=== PATIENT | female | born 1960 | race Caucasian/White ===

== ENCOUNTER → 2024-02-12 10:25 | Outpatient (REF) | payer MEDICARE, MEDICAID, SELFPAY | LOC: HWWDC 10:25 | PROVIDERS: ATTENDING PHYSICIAN Internal Medicine | DX: Z12.31 Encounter for screening mammogram for malignant neoplasm of breast (principal) | CPT/HCPCS: 77063; 77067 ==

== ENCOUNTER 2024-02-25 10:15 | Emergency (ER) | payer MEDICARE, MEDICAID, SELFPAY ==
[2024-02-25 10:17] VITALS: BP 95/82
[2024-02-25] MEDS: MOTRIN 400 MG PO (10:33)
--- NOTE | 2024-02-25 11:48 | ED.GENMED ---
History of Present Illness
<Sushant Wallace PA-C - Last Filed: 02/25/24 12:31>
General
Chief Complaint: Musculo-Skeletal Complaint
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
Time Seen by Provider: 02/25/24 10:17
History of Present Illness
History of Present Illness:
63-year-old female with past medical history of Down syndrome presenting to the emergency department for evaluation after injuring her right foot last night when she was attempting to walk to the bathroom and excellently tripped. This morning noted
increased pain, swelling, ecchymosis and difficulty ambulating. Staff noted ecchymosis to the distal metatarsals mainly concentrated around the first second and third metatarsals prompting them to have the patient come to the ER to be further
evaluated. No other injuries were sustained.
Past History
<Sushant Wallace PA-C - Last Filed: 02/25/24 12:31>
Past History
ED Past Medical History: Other (down syndrome)
Social History
Tobacco: Non-smoker
Alcohol: None
Drug: None
Personal: Single
Living: assisted living
Employment: Employed
Review of Systems
<Sushant Wallace PA-C - Last Filed: 02/25/24 12:31>
Review of Systems
All Other Systems: ROS reviewed and negative except as documented in HPI and ROS
Phy Exam
<Sushant Wallace PA-C - Last Filed: 02/25/24 12:31>
Physical Exam
Physical Exam:
GENERAL: Alert , in no apparent distress
EYE: conjunctiva clear
Head: Normocephalic atraumatic
NECK: Supple,
ENT: mmm.
LUNGS: no acute respiratory distress
NEUROLOGICAL: Alert and oriented
SKIN: Warm and dry, skin intact.
MUSCULOSKELETAL: Right foot: Mild soft tissue swelling with ecchymosis around the first second and third metatarsal. Mild tenderness over this area. Easily palpable pedal and tibial pulse. No tenderness to the proximal leg. Calcaneal tendon
without laxity. Extremities otherwise warm and well-perfused.
PSYCH: Normal and appropriate interaction.
Scores
<Sushant Wallace PA-C - Last Filed: 02/25/24 12:31>
Heart Failure Risk
Heart Failure Risk Score: Not Applicable
Heart Score for Chest Pain Patients
STEMI patient?: Not applicable
Withdrawal Assessment of Alcohol
Withdrawal Assessment Completed?: Not applicable
Course
<Sushant Wallace PA-C - Last Filed: 02/25/24 12:31>
Orders/Labs/Results
Orders:
Orders
02/25/24 10:29
Ibuprofen [Motrin] 400 mg PO NOW STA
CR Ankle - Right Min 3 Views * Urgent
Comment:
Reason For Exam: fall, pain
CR Foot - Right Min 3 Views Urgent
Comment:
Reason For Exam: fall, pain/ecchymosis great toe and 2nd digit
CR Leg Tibia/fibula Right 2 Vw Urgent
Comment:
Reason For Exam: fall, pain
Vital Signs
Initial and Last Documented VS:
Initial Vital Signs
Temp Pulse Resp BP Pulse Ox
98.9 F 96 18 95/82 95
02/25/24 10:17 02/25/24 10:17 02/25/24 10:17 02/25/24 10:17 02/25/24 10:17
Last Documented Vital Signs
Temp Pulse Resp BP Pulse Ox
98.5 F 79 18 123/63 98
02/25/24 11:55 02/25/24 11:55 02/25/24 11:55 02/25/24 11:55 02/25/24 11:55
<Rafa Cha DO - Last Filed: 02/25/24 14:04>
Orders/Labs/Results
Orders:
Orders
02/25/24 10:29
Ibuprofen [Motrin] 400 mg PO NOW STA
CR Ankle - Right Min 3 Views * Urgent
Comment:
Reason For Exam: fall, pain
CR Foot - Right Min 3 Views Urgent
Comment:
Reason For Exam: fall, pain/ecchymosis great toe and 2nd digit
CR Leg Tibia/fibula Right 2 Vw Urgent
Comment:
Reason For Exam: fall, pain
Vital Signs
Initial and Last Documented VS:
Initial Vital Signs
Temp Pulse Resp BP Pulse Ox
98.9 F 96 18 95/82 95
02/25/24 10:17 02/25/24 10:17 02/25/24 10:17 02/25/24 10:17 02/25/24 10:17
Last Documented Vital Signs
Temp Pulse Resp BP Pulse Ox
98.5 F 79 18 123/63 98
02/25/24 11:55 02/25/24 11:55 02/25/24 11:55 02/25/24 11:55 02/25/24 11:55
<Sushant Wallace PA-C - Last Filed: 02/25/24 12:31>
MDM/Problems Addressed
Differential Diagnosis Includes:
Contusion, sprain, fracture
MDM/Problems Addressed:
63 year old female presenting to ED after accidental right foot injury. Mild soft tissue swelling and ecchymosis to distal metatarsals. XR ordered to further assess
<Sushant Wallace PA-C - Last Filed: 02/25/24 12:31>
*Radiology
Radiology exam reviewed: preliminary read by ED provider (degenerative changes, no fractures)
*Pulse Oximetry
Patient hypoxic: no
*Critical Care Note
Total Time (30-74mins, 75-104mins- exclusive of procedures): Not Applicable
<Sushant Wallace PA-C - Last Filed: 02/25/24 12:31>
Patient Management
Escalation/DeEscalation of care consider admission/obs:
Patients imaging unremarkable for acute pathologies. NSAIDs/tylenol PRN for pain. Stable for discharge home
ED Attending Note
<Sushant Wallace PA-C - Last Filed: 02/25/24 12:31>
-
Portions of this chart may have been created with voice recognition software.� Occasional wrong word or��sound alike� substitutions may have occurred due to the inherent limitations of voice recognition software.
<Rafa Cha DO - Last Filed: 02/25/24 14:04>
ED Attending Note
Patient seen and examined by attending physician: Yes
ED Attending Note:
I reviewed and agree with history plan by Mauro Wallace. My exam reveals 63-year-old female in no acute distress. Mild ecchymosis at right medial metatarsals. No fractures seen. Stable for discharge.
Discharge Plan
Departure
Patient Disposition: Home (Routine Discharge)
Date of Disposition: 02/25/24
Time of Disposition: 11:48
Patient with high blood pressure during this ER visit?: No
Discharge Problem:
Right foot sprain, Contusion of foot, right
Instructions: Sprain (DC)
Prescriptions:
New
ibuprofen 400 mg tablet
400 mg PO TID PRN (Reason: Pain) Qty: 15 0RF
No Action
acetaminophen 325 MG tablet
650 mg PO Q4HPRN PRN (Reason: fever, headache, pain)
loperamide 2 MG capsule
2 mg PO Q4HPRN PRN (Reason: diarrhea)
ibuprofen 400 MG tablet
400 mg PO Q4HPRN PRN (Reason: pain)
azelastine [Astelin] 137 MCG/0.137 ML aerosol,spray
137 mcg NS DAILY
Patient Comments:
both nares
ipratropium bromide 42 MCG/SPRAY spray,non-aerosol
2 spray intranasal BID
ibandronate [Boniva] 150 MG tablet
150 mg PO .MONTHLY
Patient Comments:
on the
levocetirizine [Xyzal] 5 MG tablet
5 mg PO DAILY
pediatric multivitamin no.17 [Animal Shapes] 1 EACH tablet,chewable
1 ea PO DAILY
atorvastatin 20 MG tablet
20 mg PO HS
pymjb-z-knpjfmqaufohv [Beano] 1 TAB tablet
1 tab PO DAILY@1700
carbamide peroxide [Ear Wax Drops] 15 ML drops
2 drp otic (ear) WEEKLY
Patient Comments:
on Friday
omeprazole 20 MG capsule,delayed release(DR/EC)
20 mg PO DAILY
ketoconazole 1 APPLIC cream
1 applic topical BID
Patient Comments:
apply to both feet
cholecalciferol (vitamin D3) [Vitamin D3] 1,000 UNIT capsule
1,000 unit PO HS
sodium chloride [Saline Nasal Cascade] 30 ML aerosol,spray
1 spray intranasal BID
Patient Comments:
BL nares
olopatadine [Pataday] 2.5 ML drops
1 drp BOTH EYES DAILY
calcium carbonate-vitamin D3 [Oystercal-D] 1 EACH tablet
1 tab PO BID
ylch-rgstgudqt-tjjsjagt-aldiox [Zeasorb] 71 GM powder
1 applic topical BIDPRN PRN (Reason: rash)
aspirin,buffd-calcium carb-mag [Tri-Buffered Aspirin] 325 MG tablet
325 mg PO DAILY Qty: 0 0RF
oxycodone 5 MG tablet
5 mg PO Q4HPRN PRN (Reason: moderate pain) Qty: 18 0RF
Referrals:
Charlie Man DO [Family Provider] -
Interventions
Interventions:
*Risk Screen - Suicide Last Done: 02/25/24 11:56
*Neglect/Abuse Screening Last Done: 02/25/24 11:56
ED- Fall Risk Assessment Last Done: 02/25/24 12:37
ED-Musculoskeletal Assessment Last Done: 02/25/24 11:55
Discharge Date and Time
Print Language: SWAZI
[2024-02-25 11:55] VITALS: BP 123/63
== END 2024-02-25 14:18 | disposition home or self-care (01) ==
LOC: EMR 10:15
PROVIDERS: EMERGENCY PHYSICIAN Emergency Medicine; FAMILY PHYSICIAN Internal Medicine
DX: S93.601A Unspecified sprain of right foot, initial encounter (principal); S90.31XA Contusion of right foot, initial encounter; X58.XXXA Exposure to other specified factors, initial encounter; M25.571 Pain in right ankle and joints of right foot; Q90.9 Down syndrome, unspecified
CPT/HCPCS: 99283; 73590; 73610; 73630

== ENCOUNTER 2025-05-29 15:01 | Inpatient (IN) | payer MEDICARE, MEDICAID, SELFPAY ==
[2025-05-29 10:33] VITALS: BP 95/63
[2025-05-29 10:56] LABS: Hematocrit 38.7 % (37.0-47.0); Hemoglobin 12.9 g/dL (12.0-16.0); Mean Corp Hgb Conc. 33.3 g/dL (33.0-37.0); Mean Corpuscular Volume 93.0 fL (81.0-99.0); Nucleated Red Blood Cells % 0 %; Platelet Count 265 10^3/uL (130-400); Red Cell Dist. Width 15.3 % (11.5-14.5)
--- NOTE | 2025-05-29 11:11 | ED.GENMED ---
History of Present Illness
<SAMIRA Denson - Last Filed: 05/29/25 15:00>
General
Chief Complaint: Rectal Bleeding
Source: care professional
Exam Limitations: none
Time Seen by Provider: 05/29/25 10:32
Nursing documentation reviewed up to this point in time: agreed with
History of Present Illness
History of Present Illness:
Patient is a 64-year-old female with past medical history of Down syndrome from residential facility brought by caregiver. Caregiver reports for the past several days patient is more confused and weaker than normal. Typically she will walk and
now she can barely stand to pivot. She does have a baseline history of dementia. They also noticed that she is urinating more. They did have outpatient blood work done however that has not been resulted. Today caregiver noted some blood in
patient's stool. She reports stool was not black but dark in color and had a clot of blood which was bright red blood near the stool in the toilet and had some blood stranding in the stool as well. Patient is not able to give history.
Past History
<SAMIRA Denson - Last Filed: 05/29/25 15:00>
Past History
ED Past Medical History: Other (down syndrome)
Social History
Tobacco: Non-smoker
Alcohol: None
Drug: None
Personal: Single
Living: assisted living
Employment: Employed
Phy Exam
<SAMIRA Denson - Last Filed: 05/29/25 15:00>
General Physical Exam
General Presentation: no apparent distress
General age: appears younger than age
General Skin: warm and dry
General Habitus: normal
General Hydration: dry mucous membranes
Cardiovascular Exam
Cardiovascular Exam: regular rate/rhythm, no murmur and normal peripheral pulses
Pulmonary Exam
Pulmonary Exam: lungs clear and no respiratory distress
Gastrointestinal Exam
Gastrointestinal Exam: non tender, soft and other (brown stool heme positive )
Neurological Exam
Neurological Exam: alert
Musculoskeletal Exam
Musculoskeletal Exam: full ROM
Skin Exam
Skin Exam: normal color and warm/dry
Psychiatric Exam
Psychiatric Exam: normal mood/affect
Course
<SAMIRA Denson - Last Filed: 05/29/25 15:00>
Orders/Labs/Results
Orders:
Orders
05/29/25 10:47
Type And Crossmatch [Type+Screen] Urgent
Complete Blood Count/With Diff Urgent
Comprehensive Metabolic Panel Urgent
05/29/25 11:14
Straight cath- Treatment ONCE
05/29/25 11:30
0.9% Sodium Chloride 1000 ml [Nss] 1,000 ml IV BOLUS
05/29/25 11:48
UA Reflex to Culture [Urinalysis Reflex To Culture] Urgent
Date Specimen was Collected: 05/29/25
Time Specimen was Collected: 11:48
Urine Microscopic Reflex Cult Urgent
Urine Culture Urgent
ISADORA Source: U
Specimen Description:
Date Specimen was Collected: 05/29/25
Time Specimen was Collected: 11:48
05/29/25 13:40
CefTRIAXone [Rocephin] 1,000 mg IV NOW STA
05/29/25 14:27
Admit/Transfer Patient As Directed
Co-Sign Provider:
Level of Care: Inpatient admission
Assign to:: Medical/Surgical
Physician / Group: ioana
Diagnosis: metabolic encephelopathy uti
Reason for Hospitalization: metabolic encephelopathy uti
Expected length of stay greater than two midnights?: Yes
ELOS- Estimated Length of Stay in days: 2
I certify the patient meets the requirements for IP care: Yes
PRN Pain Medication Management As Directed
May give lesser potent ordered pain med per pt: Yes
preference::
Protocol:: Medication orders for pain may be administered in a
manner that supports deferring to patient preference
when the pt is:
- Requesting an ordered lesser potent pain medication.
Least to most potent pain medications are defined
as: acetaminophen < NSAID < tramadol < opioids
(morphine, oxycodone, hydromorphone).
- Requesting a lesser dose of the same medication IF
ORDERED.
- Requesting a less intrusive route of administration
if both routes are prescribed by the provider (PO <
IV).
05/29/25 14:28
Code Status As Directed
Resuscitation Status: Full Code
Abnormal Lab Results
05/29/25 05/29/25
10:47 11:48
RBC 4.16 L 10^6/uL
(4.20-5.40)
RDW 15.3 H %
(11.5-14.5)
Absolute Neuts (auto) 8.0 H 10^3/uL
(1.4-6.5)
Absolute Lymphs (auto) 1.1 L 10^3/uL
(1.2-3.4)
Neutrophils % 81.0 H %
(42.2-75.2)
Lymphocytes % 10.6 L %
(20.5-51.1)
Chloride 108 H mmol/L
(98-107)
BUN 28 H mg/dl
(7-17)
Creatinine 1.3 H mg/dL
(0.6-1.0)
Glucose 128 H mg/dl
(70-99)
Urine Ketones 1+ A
(Negative)
Ur Occult Blood Reflex 1+ A
(Negative)
Urine Nitrite (Reflex) Positive A
(Negative)
Leukocyte Esterase Rfl 2+ A
(Negative)
Urine WBC (Reflex) 16-20 A /HPF
(0-5)
Urine Bacteria (Reflex) Many A
(Negative)
Urine Albumin (Reflex) 2+ A
(Neg - Trace)
05/29/25 10:47
05/29/25 10:47
Vital Signs
Initial and Last Documented VS:
Initial Vital Signs
Temp Pulse Resp BP Pulse Ox
97.3 F 70 20 95/63 98
05/29/25 10:33 05/29/25 10:33 05/29/25 10:33 05/29/25 10:33 05/29/25 10:33
Last Documented Vital Signs
Temp Pulse Resp BP Pulse Ox
97.3 F 70 20 /63 98
05/29/25 10:33 05/29/25 14:15 05/29/25 14:15 05/29/25 10:33 05/29/25 11:14
Supervisor Stitching Department consulted with Physician
Supervisor Stitching Department consulted with physician?: Yes
Name of Physician Consulted: Billy
<Abdiel Cervantes MD - Last Filed: 05/29/25 14:42>
Orders/Labs/Results
Orders:
Orders
05/29/25 10:47
Type And Crossmatch [Type+Screen] Urgent
Complete Blood Count/With Diff Urgent
Comprehensive Metabolic Panel Urgent
05/29/25 11:14
Straight cath- Treatment ONCE
05/29/25 11:30
0.9% Sodium Chloride 1000 ml [Nss] 1,000 ml IV BOLUS
05/29/25 11:48
UA Reflex to Culture [Urinalysis Reflex To Culture] Urgent
Date Specimen was Collected: 05/29/25
Time Specimen was Collected: 11:48
Urine Microscopic Reflex Cult Urgent
Urine Culture Urgent
ISADORA Source: U
Specimen Description:
Date Specimen was Collected: 05/29/25
Time Specimen was Collected: 11:48
05/29/25 13:40
CefTRIAXone [Rocephin] 1,000 mg IV NOW STA
05/29/25 14:27
Admit/Transfer Patient As Directed
Co-Sign Provider:
Level of Care: Inpatient admission
Assign to:: Medical/Surgical
Physician / Group: ioana
Diagnosis: metabolic encephelopathy uti
Reason for Hospitalization: metabolic encephelopathy uti
Expected length of stay greater than two midnights?: Yes
ELOS- Estimated Length of Stay in days: 2
I certify the patient meets the requirements for IP care: Yes
PRN Pain Medication Management As Directed
May give lesser potent ordered pain med per pt: Yes
preference::
Protocol:: Medication orders for pain may be administered in a
manner that supports deferring to patient preference
when the pt is:
- Requesting an ordered lesser potent pain medication.
Least to most potent pain medications are defined
as: acetaminophen < NSAID < tramadol < opioids
(morphine, oxycodone, hydromorphone).
- Requesting a lesser dose of the same medication IF
ORDERED.
- Requesting a less intrusive route of administration
if both routes are prescribed by the provider (PO <
IV).
05/29/25 14:28
Code Status As Directed
Resuscitation Status: Full Code
Abnormal Lab Results
05/29/25 05/29/25
10:47 11:48
RBC 4.16 L 10^6/uL
(4.20-5.40)
RDW 15.3 H %
(11.5-14.5)
Absolute Neuts (auto) 8.0 H 10^3/uL
(1.4-6.5)
Absolute Lymphs (auto) 1.1 L 10^3/uL
(1.2-3.4)
Neutrophils % 81.0 H %
(42.2-75.2)
Lymphocytes % 10.6 L %
(20.5-51.1)
Chloride 108 H mmol/L
(98-107)
BUN 28 H mg/dl
(7-17)
Creatinine 1.3 H mg/dL
(0.6-1.0)
Glucose 128 H mg/dl
(70-99)
Urine Ketones 1+ A
(Negative)
Ur Occult Blood Reflex 1+ A
(Negative)
Urine Nitrite (Reflex) Positive A
(Negative)
Leukocyte Esterase Rfl 2+ A
(Negative)
Urine WBC (Reflex) 16-20 A /HPF
(0-5)
Urine Bacteria (Reflex) Many A
(Negative)
Urine Albumin (Reflex) 2+ A
(Neg - Trace)
05/29/25 10:47
05/29/25 10:47
Vital Signs
Initial and Last Documented VS:
Initial Vital Signs
Temp Pulse Resp BP Pulse Ox
97.3 F 70 20 63 98
05/29/25 10:33 05/29/25 10:33 05/29/25 10:33 05/29/25 10:33 05/29/25 10:33
Last Documented Vital Signs
Temp Pulse Resp BP Pulse Ox
97.3 F 70 20 63 98
05/29/25 10:33 05/29/25 14:15 05/29/25 14:15 05/29/25 10:33 05/29/25 11:14
<SAMIRA Denson - Last Filed: 05/29/25 15:00>
MDM/Problems Addressed
Differential Diagnosis Includes:
Not limited to UTI dehydration GI bleed, anemia
MDM/Problems Addressed:
As documented patient is a 64-year-old female from home with personal caregivers. Patient has a history of Down syndrome presented for weakness increased confusion frequent urination. In addition caregiver noted some blood in patient's stool stool
seemed a little darker prior to arrival. Patient's stool is brown heme positive here in the ER hemoglobin stable 12.9 she is not on blood thinners. She does however have UTI and is dehydrated. She was given fluids with weakness dehydration
confusion will require admission IV antibiotics given. Case discussed ED physician
<SAMIRA Denson - Last Filed: 05/29/25 15:00>
*Pulse Oximetry
SaO2: 98
Oxygen Mode of Delivery: Room air
Patient hypoxic: no
*Critical Care Note
Total Time (30-74mins, 75-104mins- exclusive of procedures): Not Applicable
ED Attending Note
<SAMIRA Denson - Last Filed: 05/29/25 15:00>
-
Portions of this chart may have been created with voice recognition software.� Occasional wrong word or��sound alike� substitutions may have occurred due to the inherent limitations of voice recognition software.
<Abdiel Cervantes MD - Last Filed: 05/29/25 14:42>
ED Attending Note
Patient seen and examined by attending physician: Yes
I performed the substantive portion of visit, reviewed & personally made and approve the management plan that is documented in note by myself or NORMAN.: Yes
ED Attending Note:
64-year-old female. Down syndrome. Presents with weakness difficulty ambulating and urinary symptoms. Also small amount of blood in the stool. Patient has no complaints. Brought in by caregiver. On exam nontoxic no distress. Mild hypotension.
Sequela of Down syndrome. Warm and dry. Perfusing well. Lungs are clear and equal. Regular rate and rhythm. Abdomen nontender. Nonfocal. Positive urinalysis given patient's degree of weakness and ADL issues along with UTI will be admitted
for further care
Discharge Plan
Departure
Patient Disposition: Admit
Date of Disposition: 05/29/25
Time of Disposition: 13:58
Admit to: Med/Surg
Admit to doctor: hospitalist
Presentation/result/management discussed w/ accepting MD/DO: Hospitalist
Patient with high blood pressure during this ER visit?: No
Condition: Fair
Covid-19: Not Applicable
Discharge Problem:
UTI (urinary tract infection), Weakness, Acute dehydration
Prescriptions:
No Action
acetaminophen 325 MG tablet
650 mg PO Q4HPRN PRN (Reason: fever, headache, pain)
atorvastatin 20 MG tablet
20 mg PO HS
Ear Wax Drops 15 ML drops
2 drp otic (ear) WE
omeprazole 20 MG capsule,delayed release(DR/EC)
20 mg PO DAILY
cholecalciferol (vitamin D3) [Vitamin D3] 1,000 UNIT capsule
1,000 unit PO HS
Theragen Tablet
1 tab PO DAILY
azelastine 137 mcg (0.1 %) spray,non-aerosol
1 spray INTRANASAL DAILY
Refresh Classic (PF) 1.4-0.6 % dropperette
1 drp BOTH EYES QID
Saline Nasal 0.65 % aerosol,spray
2 spray INTRANASAL BID
calcium carbonate-vitamin D3 [Oysco 500/D] 500 mg-5 mcg (200 unit) tablet
1 tab PO DAILY
Visbiome 112.5 billion cell Capsule
1 cap PO BID
menthol-zinc oxide [CalaSoothe] 0.44-20.6 % ointment
1 applic TOPICAL BID
Rx Instructions:
to ju area
Beano 400 unit Tablet
400 unit PO QPM
Referrals:
Radha Herring CRNP [Family Provider, General]
Interventions
Interventions:
*Risk Screen - Suicide Last Done: 05/29/25 10:33
*General Assessment Last Done: 05/29/25 10:33
*Neglect/Abuse Screening Last Done: 05/29/25 10:33
XT-Fiqmuo-Qnfrsekicx Assessment Last Done: 05/29/25 11:52
ED- Cardiac Assessment Last Done: 05/29/25 11:52
ED- Pulmonary Assessment Last Done: 05/29/25 11:52
Discharge Date and Time
Print Language: MACEDONIAN
[2025-05-29 11:19] LABS: ALT (SGPT) 23 U/L (0-35); AST (SGOT) 26 U/L (14-36); Albumin 3.7 g/dl (3.5-5.0); Alkaline Phosphatase 92 U/L (38-126); Blood Urea Nitrogen 28 mg/dl (7-17); Calcium 8.7 mg/dl (8.4-10.2); Carbon Dioxide 24 mmol/L (22-30); Chloride 108 mmol/L (98-107); Glucose 128 mg/dl (70-99); Potassium 3.8 mmol/L (3.5-5.1); Sodium 141 mmol/L (135-145); Total Protein 6.8 g/dl (6.3-8.2); eGFR 45.92
[2025-05-29] MEDS: NSS 1000 IV (11:47)
[2025-05-29 12:10] LABS: Urine Character Slightly Cloudy (Clear)
[2025-05-29 12:37] LABS: Urine Red Blood Cell 0-2 /HPF (0-2)
[2025-05-29 12:38] LABS: Urine White Cell 16-20 /HPF (0-5)
[2025-05-29] MEDS: ROCEPHIN 1000 MG IV (14:12)
--- NOTE | 2025-05-29 14:30 | HPS.HSE ---
Family Physician
-
Family Physician: SAMIRA Pérez
Chief Complaint
-
blood in stool urinary frequency
History of Present Illness
64-year-old female past medical history of Down syndrome, dementia, mild mitral regurgitation, right hearing loss, osteopenia, allergic rhinitis, hyperlipidemia, presenting from residential facility by caregiver with more confusion over the past
several days. She was noticed to have urinated more frequently recently. Today caregiver noted some blood in the patient's stool. Stools were not black but dark in color and had a clot of blood which was dark red near the stool in the toilet and
had some blood draining in the stool as well. No prior known history of GI bleeding. She complains of abdominal pain in the middle of her belly. She did have some loose stools yesterday.
Patient takes ibuprofen as needed no recent use of ibuprofen.
Medical History
Past Medical History
Past Medical History: Reports Other (Down syndrome, dementia, mild mitral regurgitation, right hearing loss, osteopenia, allergic rhinitis, hyperlipidemia,)
Past Surgical History: Reports None
Social History
Tobacco: Non-smoker
Alcohol: None
Drug: None
Family History
Family History: Not pertinent
Allergies / Home Medications
Allergies reflects when Allergies were last updated in [facility].
Home Medications with original date entered in [facility]
Allergy/Medication List:
Allergies
Allergy/AdvReac Type Severity Reaction Status Date / Time
levofloxacin (From Levaquin) Allergy Rash Verified 05/29/25 10:35
Home Medications
acetaminophen 325 mg tablet 650 mg PO Q4HPRN PRN fever, headache, pain 06/26/12
azelastine 137 mcg (0.1 %) nasal spray (Astelin) 137 mcg NS DAILY 06/26/12
ibandronate 150 mg tablet (Boniva) 150 mg PO .MONTHLY 06/26/12
ibuprofen 400 mg tablet 400 mg PO Q4HPRN PRN pain 06/26/12
ipratropium bromide 42 mcg (0.06 %) nasal spray 2 spray intranasal BID 06/26/12
levocetirizine 5 mg tablet (Xyzal) 5 mg PO DAILY 06/26/12
loperamide 2 mg capsule 2 mg PO Q4HPRN PRN diarrhea 06/26/12
pediatric multivitamin no.17 (Animal Shapes chewable tablet) 1 ea PO DAILY 06/26/12
ifhzi-g-ztqfhbxieeito (Beano tablet) 1 tab PO DAILY@1700 08/02/16
atorvastatin 20 mg tablet 20 mg PO HS 08/02/16
calcium 500 mg (as carbonate)-vitamin D3 10 mcg (400 unit) tablet (Oystercal-D) 1 tab PO BID 08/02/16
carbamide peroxide 6.5 % ear drops (Ear Wax Drops) 2 drp otic (ear) WEEKLY 08/02/16
cholecalciferol (vitamin D3) 25 mcg (1,000 unit) capsule (Vitamin D3) 1,000 unit PO HS 08/02/16
ketoconazole 2 % topical cream 1 applic topical BID 08/02/16
olopatadine 0.2 % eye drops (Pataday) 1 drp BOTH EYES DAILY 08/02/16
omeprazole 20 mg capsule,delayed release 20 mg PO DAILY 08/02/16
sodium chloride 0.65 % nasal spray aerosol (Saline Nasal [place]) 1 spray intranasal BID 08/02/16
sydb-aelgkcbrc-bieiuwilvtuxh-aldioxa topical powder (Zeasorb topical powder) 1 applic topical BIDPRN PRN rash 08/02/16
aspirin,buffered (calcium carbonate-magnesium) 325 mg tablet (Tri-Buffered Aspirin) 325 mg PO DAILY ##0 08/06/16
oxycodone 5 mg tablet 5 mg PO Q4HPRN PRN moderate pain ##18 08/06/16
ibuprofen 400 mg tablet 400 mg PO TID PRN Pain #15 tabs 02/25/24
Review of Systems
-
History Source: Patient
A 12 point ROS was completed and negative except as noted: Yes
Constitutional: Reports No Symptoms
EENT: Reports No Symptoms
Respiratory: Reports No Symptoms
Cardiac: Reports No Symptoms
Abdomen/GI: Reports See HPI
: Reports See HPI
Musculoskeletal: Reports No Symptoms
Skin: Reports No Symptoms
Neurological: Reports No Symptoms
Endocrine: Reports No Symptoms
Hematologic/Lymphatic: Reports No Symptoms
Psych: Reports No Symptoms
Physical Exam
Vital Signs
Vital Signs
Temp Pulse Resp BP Pulse Ox
97.3 F 70 20 95/63 98
05/29/25 10:33 05/29/25 14:15 05/29/25 14:15 05/29/25 10:33 05/29/25 11:14
Physical Exam
General: Well Developed, Well Nourished and No Apparent Distress
HEENT: NormoCephalic, Moist mucous membranes and Atraumatic
Respiratory: Clear
Cardiac: S1/S2 and Regular Rhythm; No Murmur or Rub
GI: Soft, Non Tender, Non Distended and Normal Bowel Sounds; No Organomegaly
Rectal: Deferred by Provider
Musculoskeletal: No Clubbing, No Cyanosis and No Edema
Skin: No Rash
Neuro: Nonfocal/grossly intact
Laboratory Results
-
05/29/25 10:47
05/29/25 10:47
Laboratory Results
Total Bilirubin 0.5 mg/dl (0.2-1.3) 05/29/25 10:47
AST 26 U/L (14-36) 05/29/25 10:47
ALT 23 U/L (0-35) 05/29/25 10:47
Alkaline Phosphatase 92 U/L (38-126) 05/29/25 10:47
Data Reviewed
-
Lab Data: Labs Reviewed by me
Old Records: Reviewed
Impression/Plan
-
IMPRESSION:
PLAN:
# Acute metabolic encephalopathy secondary to UTI
# History of prior UTI
- Urinalysis shows 16-20 WBC, +2 leukocyte esterase
- IV fluids
- Ceftriaxone
# Acute kidney injury prerenal
- Creatinine 1.3
- IV fluids
# Rectal bleeding episode unclear etiology could be diverticular versus angioectasia versus colitis
- Rectal exam showed brown stool, heme positive
-No active bleeding currently, no diarrhea noted so far
- Hemoglobin 12.9
-Consider CT scan if continued bleeding or diarrhea
- Consult GI if continued bleeding or hemoglobin drops
- Clear liquid diet
Down syndrome
Dementia
Mild mitral regurgitation
Right hearing loss
Osteopenia
Allergic rhinitis
Hyperlipidemia
- Continue statin
Full code
DVT prophylaxis�SCDs
Clear liquid diet
--- NOTE | 2025-05-29 15:37 | EDCM ---
CM reviewed chart. Pt has Downs syndrome, lives in [facility] alf.
Needs assistance with ADLs, personal care, independent in ambulation, no assistive devices.
Aparna Scott listed as emergency contact in house nurse at her facility.
PCP: Sapphire Herring
Pharmacy: [facility]
Anticipate discharge back to alf, CM will continue to follow for any discharge planning needs.
[2025-05-29 16:24] VITALS: BMI 34.6
[2025-05-29 16:29] VITALS: BP 120/66
--- NOTE | 2025-05-29 19:17 | PTCARENOTE ---
Pt received from ED and pulled over to bed. Caregiver @bedside stayed to answer admission questions. VSS. Pt incontinent and yelling out with turning and cleaning. pt denies pain. Pt requesting to be left alone. Tangled put on the TV- pt relaxed at
this time. Bed alarm is in place. POC ongoing.
[2025-05-29 23:47] VITALS: BP 117/65
[2025-05-30 05:50] LABS: Hematocrit 37.9 % (37.0-47.0); Hemoglobin 12.7 g/dL (12.0-16.0); Mean Corp Hgb Conc. 33.5 g/dL (33.0-37.0); Mean Corpuscular Volume 92.9 fL (81.0-99.0); Nucleated Red Blood Cells % 0 %; Platelet Count 271 10^3/uL (130-400); Red Cell Dist. Width 14.9 % (11.5-14.5)
[2025-05-30 06:58] LABS: ALT (SGPT) 22 U/L (0-35); AST (SGOT) 27 U/L (14-36); Albumin 3.5 g/dl (3.5-5.0); Alkaline Phosphatase 96 U/L (38-126); Blood Urea Nitrogen 19 mg/dl (7-17); Calcium 8.4 mg/dl (8.4-10.2); Carbon Dioxide 24 mmol/L (22-30); Chloride 110 mmol/L (98-107); Estimated Creatinine Clearance 57 ml/min; Glucose 93 mg/dl (70-99); Potassium 4.0 mmol/L (3.5-5.1); Sodium 141 mmol/L (135-145); Total Protein 6.6 g/dl (6.3-8.2); eGFR > 60.00
[2025-05-30 07:31] VITALS: BP 146/80
--- NOTE | 2025-05-30 08:47 | W.PN.HOSP.TC ---
Today's Communication/Plan
-
See plan
Assessment / Plan
Assessment / Plan
Physical Exam
General: Well Developed, Well Nourished and No Apparent Distress
HEENT: Normocephalic, Moist mucous membranes
Respiratory: Clear to Auscultation Bilaterally
Cardiac: S1/S2 and Regular Rhythm
GI: Soft, Non Tender, Non Distended and Normal Bowel Sounds
Musculoskeletal: No Cyanosis and No Edema
Skin: Warm. Dry.
Neuro: Nonfocal/grossly intact
Assessment/Plan
64-year-old female past medical history of Down syndrome, dementia, mild mitral regurgitation, right hearing loss, osteopenia, allergic rhinitis, hyperlipidemia, presenting from residential facility by caregiver with more confusion over the past
several days. She was noticed to have urinated more frequently recently. Today caregiver noted some blood in the patient's stool. Stools were not black but dark in color and had a clot of blood which was dark red near the stool in the toilet and
had some blood draining in the stool as well. No prior known history of GI bleeding. She complains of abdominal pain in the middle of her belly. She did have some loose stools yesterday.
Patient takes ibuprofen as needed no recent use of ibuprofen.
# Acute metabolic encephalopathy secondary to UTI
# History of prior UTI
- Urinalysis showed 16-20 WBC, +2 leukocyte esterase
- Ceftriaxone
# Acute kidney injury prerenal - RESOLVED
- Creatinine 1.3
- IV fluids were given
# Rectal bleeding episode unclear etiology could be diverticular versus angioectasia versus colitis
- Rectal exam showed brown stool, heme positive
-No active bleeding currently, no diarrhea noted so far
- Hemoglobin 12.9
-Consider CT scan if continued bleeding or diarrhea
- Consult GI if continued bleeding or hemoglobin drops
- Clear liquid diet, will advance tomorrow
Down syndrome
Dementia
Mild mitral regurgitation
Right hearing loss
Osteopenia
Allergic rhinitis
Hyperlipidemia
- Continue statin
Full code
DVT prophylaxis�SCDs
Clear liquid diet
Anticipated Discharge: 24 - 48 hours
Subjective/Interval History
-
Date of Service: May 30, 2025
Patient was seen and examined. She denied any new symptoms or complaints.
Objective Data
-
Labs:
Laboratory Results
05/30/25
05:38
WBC 8.2
Hgb 12.7
Hct 37.9
Plt Count 271
Sodium 141
Potassium 4.0
Chloride 110 H
Carbon Dioxide 24
BUN 19 H
Creatinine 0.9
Glucose 93
Calcium 8.4
Total Bilirubin 0.5
AST 27
ALT 22
Alkaline Phosphatase 96
Vital Signs:
Vital Signs
Temp Pulse Resp BP Pulse Ox
97.5 F 69 16 146/80 93
05/30/25 07:31 05/30/25 07:31 05/30/25 07:31 05/30/25 07:31 05/30/25 07:31
I&O
05/29/25 05/30/25 05/31/25
06:59 06:59 06:59
Intake Total 600 / 600
Balance 600 / 600
[2025-05-30] MEDS: STERILE WATER FOR INJECTION 10 ML IV (14:20)
[2025-05-30] MEDS: ROCEPHIN 1000 MG IV (14:20)
[2025-05-30 15:26] VITALS: BP 141/78
[2025-05-30] MEDS: LIPITOR 20 MG PO (22:52)
[2025-05-30 23:27] VITALS: BP 133/70
[2025-05-31 06:37] LABS: Hematocrit 39.1 % (37.0-47.0); Hemoglobin 13.3 g/dL (12.0-16.0); Mean Corp Hgb Conc. 34.0 g/dL (33.0-37.0); Mean Corpuscular Volume 90.9 fL (81.0-99.0); Platelet Count 260 10^3/uL (130-400); Red Cell Dist. Width 14.6 % (11.5-14.5)
[2025-05-31 06:52] LABS: Blood Urea Nitrogen 12 mg/dl (7-17); Calcium 8.3 mg/dl (8.4-10.2); Carbon Dioxide 24 mmol/L (22-30); Chloride 108 mmol/L (98-107); Estimated Creatinine Clearance 57 ml/min; Glucose 87 mg/dl (70-99); Potassium 3.6 mmol/L (3.5-5.1); Sodium 140 mmol/L (135-145); eGFR > 60.00
[2025-05-31 07:23] VITALS: BP 139/63
--- NOTE | 2025-05-31 07:52 | W.PN.HOSP.TC ---
Today's Communication/Plan
-
Await final urine culture results tomorrow
Doing well
Assessment / Plan
Assessment / Plan
Physical Exam
General: Well Developed, Well Nourished and No Apparent Distress
HEENT: Normocephalic, Moist mucous membranes
Respiratory: Clear to Auscultation Bilaterally
Cardiac: S1/S2 and Regular Rhythm
GI: Soft, Non Tender, Non Distended and Normal Bowel Sounds
Musculoskeletal: No Cyanosis and No Edema
Skin: Warm. Dry.
Neuro: Nonfocal/grossly intact
Assessment/Plan
64-year-old female past medical history of Down syndrome, dementia, mild mitral regurgitation, right hearing loss, osteopenia, allergic rhinitis, hyperlipidemia, presenting from residential facility by caregiver with more confusion over the past
several days. She was noticed to have urinated more frequently recently. Today caregiver noted some blood in the patient's stool. Stools were not black but dark in color and had a clot of blood which was dark red near the stool in the toilet and
had some blood draining in the stool as well. No prior known history of GI bleeding. She complains of abdominal pain in the middle of her belly. She did have some loose stools yesterday.
Patient takes ibuprofen as needed no recent use of ibuprofen.
# Acute metabolic encephalopathy secondary to UTI
# History of prior UTI
- Urinalysis showed 16-20 WBC, +2 leukocyte esterase
- Ceftriaxone
- Urine culture growing E. coli, I spoke to microbiology lab and they said further results should be available tomorrow 06/01/25
# Acute kidney injury prerenal - RESOLVED
- Creatinine 1.3
- IV fluids were given
# Rectal bleeding episode unclear etiology could be diverticular versus angioectasia versus colitis
- Rectal exam showed brown stool, heme positive
- No active bleeding currently, no diarrhea noted so far
- Hemoglobin stable
- Consider CT scan only if continued bleeding or diarrhea
- Consult GI only if continued bleeding or hemoglobin drops
- Advance to regular diet
Down syndrome
Dementia
Mild mitral regurgitation
Right hearing loss
Osteopenia
Allergic rhinitis
Hyperlipidemia
- Continue statin
Full code
DVT prophylaxis�SCDs
Diet (as per Speech therapist Meg Lewis): Minced and moist solids + thin liquids
Anticipated Discharge: Within 24 hours
Subjective/Interval History
-
Date of Service: May 31, 2025
Patient was seen and examined. She reported doing fine, denied any new symptoms or complaints.
Objective Data
-
Labs:
Laboratory Results
05/31/25
05:54
WBC 6.9
Hgb 13.3
Hct 39.1
Plt Count 260
Sodium 140
Potassium 3.6
Chloride 108 H
Carbon Dioxide 24
BUN 12
Creatinine 0.9
Glucose 87
Calcium 8.3 L
Vital Signs:
Vital Signs
Temp Pulse Resp BP Pulse Ox
97.6 F 73 16 139/63 94
05/31/25 07:23 05/31/25 07:23 05/31/25 07:23 05/31/25 07:23 05/31/25 07:23
I&O
05/30/25 05/31/25 06/01/25
06:59 06:59 06:59
Intake Total 600 / 600 660 / 660
Balance 600 / 600 660 / 660
[2025-05-31] MEDS: PROTONIX 40 MG PO (08:36)
[2025-05-31] MEDS: OCEAN, SALINE MIST 50 SPRAYS NASAL ×2 (08:36→20:35)
[2025-05-31] MEDS: REFRESH EYE DROPS (PF) 1 DROPS BOTH EYES ×4 (08:36→20:35)
[2025-05-31] MEDS: THERAGRAN 1 TABLET PO (08:38)
--- NOTE | 2025-05-31 10:27 | PTOTSP ---
Speech Therapy Evaluation:
Pt with chronic risk factors of dysphagia including hx of down syndrome and dementia, acutely compounded by metabolic encephalopathy in the setting of UTI. Pt also has risk factors for development of aspiration complication including dependence for
oral care and ambulatory dysfunction. At bedside, pt with swallow function that is likely baseline. Suspect baseline oral phase inefficiency in the setting of edentulous state and absent mastication and reliance of repetitive lingual thrusting for
bolus manipulation and transfer. No overt s/sx of aspiration across trials. No imaging completed thus far. Pt afebrile, WBC WNL, and on room air.
Recommend:
1. IDDSI Level 5 (minced and moist),thin liquids
2. Medications as best tolerated
3. General aspiration precautions
4. Partial assistance and supervision with PO intake
5. EARLY CHILDHOOD SERVICES COORDINATOR to follow, likely brief
[2025-05-31] MEDS: KCL 40 MEQ PO (11:48)
[2025-05-31] MEDS: ROCEPHIN 1000 MG IV (13:40)
[2025-05-31] MEDS: STERILE WATER FOR INJECTION 10 ML IV (13:42)
[2025-05-31 15:32] VITALS: BP 135/78
[2025-05-31] MEDS: LIPITOR 20 MG PO (20:35)
[2025-05-31 23:00] VITALS: BP 129/66
[2025-06-01 07:30] VITALS: BP 95/66
[2025-06-01] MEDS: THERAGRAN 1 TABLET PO (08:46)
[2025-06-01] MEDS: OCEAN, SALINE MIST 1 SPRAYS NASAL ×2 (08:46→22:13)
[2025-06-01] MEDS: PROTONIX 40 MG PO (08:46)
[2025-06-01] MEDS: REFRESH EYE DROPS (PF) 1 DROPS BOTH EYES ×4 (08:46→22:15)
[2025-06-01] MEDS: DEBROX EAR DROPS 2 DROP OTIC (08:47)
--- NOTE | 2025-06-01 09:36 | CM ---
Call placed to Aparna at [facility] where Ashley lives to discuss discharge plans. Per Aparna, they will need copies of 'everything', as they are audited closely by the State and need to have all paperwork on file.
Ambulance transport requested, as patient is assist of 2 people for transfers.
[facility] is utilized by the facility.
Address:
[address] [place] [address]
[place] [id number]
[facility] Report: [phone]
[facility]
[2025-06-01 09:49] LABS: Hematocrit 43.5 % (37.0-47.0); Hemoglobin 14.8 g/dL (12.0-16.0); Mean Corp Hgb Conc. 34.0 g/dL (33.0-37.0); Mean Corpuscular Volume 91.8 fL (81.0-99.0); Platelet Count 300 10^3/uL (130-400); Red Cell Dist. Width 14.9 % (11.5-14.5)
[2025-06-01 10:12] LABS: Blood Urea Nitrogen 13 mg/dl (7-17); Calcium 8.7 mg/dl (8.4-10.2); Carbon Dioxide 26 mmol/L (22-30); Chloride 107 mmol/L (98-107); Estimated Creatinine Clearance 57 ml/min; Glucose 117 mg/dl (70-99); Potassium 4.2 mmol/L (3.5-5.1); Sodium 141 mmol/L (135-145); eGFR > 60.00
[2025-06-01] MEDS: INVANZ 60 MG IV (11:03)
--- NOTE | 2025-06-01 11:13 | CON.ID ---
Consultation
-
Date/Time Consultation Requested: 06/01/25 8:56
Date/Time Consultation Performed: 06/01/25 13:10
Requesting Provider: Dr Scott
Performing Provider: Dr Johnson
Reason for Consultation: ESBL E. coli UTI -- switching to Ertapenem
Chief Complaint / Past History
Chief Complaint
urinary frequency
History of Present Illness
Ms Hernandez is a 64 year old female with down syndrome dementia who presented from a nursing facility for several days of increased confusion and urinary frequency. She complains of abdominal pain centrally. home health aide caregiver also noted blood in the
patients stool - a clot of blood. Today she states that dysuria has improved
Since arrival here she has been afebrile, BP overall stable, wbc 9.9, hgb 12.9, plt 265, cr initially 1.3 then 0.9, UA 16-20 wbc/hpf, urine culture 100 K ESBL E coli, currently on eratpenem. ID is consulted for assistance with management
Past History
Additional Past Medical History:
Down syndrome, dementia, mild mitral regurgitation, right hearing loss, osteopenia, allergic rhinitis, hyperlipidemia
Past Surgical History: None
Allergy History:
levofloxacin (From Levaquin) Allergy (Verified 05/29/25 10:35)
Rash
Medications Reviewed: Yes
Social History
Tobacco: Non-Smoker
Alcohol: None
Drug: None
Family History
Family History: Not Pertinent
Review of Systems
Review of Systems
unable to obtain due to the condition of the patient
Vital Signs
Temp Pulse Resp BP Pulse Ox
97.3 F 74 16 95/66 99
06/01/25 07:30 06/01/25 07:30 06/01/25 07:30 06/01/25 07:30 06/01/25 07:30
Physical Exam
Physical Exam
Constitutional: No Acute Distress
Cardiovascular: Regular Rate and S1/S2; Negative Murmur or Rub
Pulmonary: Clear and Symmetric; Negative Wheezes, Rales or Rhonchi
Gastrointestinal: Soft, Non Tender, Non Distended and Normal Bowel Sounds
Skin: Warm and Dry; Negative Rash or Jaundice
Lab / Diagnostic Study Results
06/01/25 09:15
06/01/25 09:15
Abs Immat Gran (auto) 0.1 10^3/uL (0-0.05) H 05/30/25 05:38
Absolute Neuts (auto) 5.5 10^3/uL (1.4-6.5) 05/30/25 05:38
Absolute Lymphs (auto) 1.8 10^3/uL (1.2-3.4) 05/30/25 05:38
Absolute Monos (auto) 0.5 10^3/uL (0.1-0.6) 05/30/25 05:38
Absolute Basos (auto) 0.1 10^3/uL (0-0.2) 05/30/25 05:38
Immature Gran % 0.7 % (0-0.5) H 05/30/25 05:38
Neutrophils % 67.8 % (42.2-75.2) 05/30/25 05:38
Lymphocytes % 22.3 % (20.5-51.1) 05/30/25 05:38
Monocytes % 6.2 % (1.7-9.3) 05/30/25 05:38
Eosinophils % 1.3 % (0-6) 05/30/25 05:38
Basophils % 1.7 % (0-2) 05/30/25 05:38
Ur Squamous Epith Cells 3-5 /LPF (Few) 05/29/25 11:48
Microbiology Results
Micro:
05/29/25 11:48 Urine Culture - Final
Urine Escherichia coli - ESBL
Assessment / Plan
ESBL E coli UTI
Levofloxacin allergy - rash
- can transition to bactrim 1 DS tab BID x7 more days
- stop ertapenem
- stable for dc from ID perspective
[2025-06-01 16:00] VITALS: BP 118/70
--- NOTE | 2025-06-01 17:15 | W.PN.HOSP.TC ---
Today's Communication/Plan
-
ESBL E. coli in urine, initially Abx changed to Ertapenem, later switched to Bactrim, appreciate ID
Assessment / Plan
Assessment / Plan
Physical Exam
General: Well Developed, Well Nourished and No Apparent Distress
HEENT: Normocephalic, Moist mucous membranes
Respiratory: Clear to Auscultation Bilaterally
Cardiac: S1/S2 and Regular Rhythm
GI: Soft, Non Tender, Non Distended and Normal Bowel Sounds
Musculoskeletal: No Cyanosis and No Edema
Skin: Warm. Dry.
Neuro: Nonfocal/grossly intact
Assessment/Plan
64-year-old female past medical history of Down syndrome, dementia, mild mitral regurgitation, right hearing loss, osteopenia, allergic rhinitis, hyperlipidemia, presenting from residential facility by caregiver with more confusion over the past
several days. She was noticed to have urinated more frequently recently. Today caregiver noted some blood in the patient's stool. Stools were not black but dark in color and had a clot of blood which was dark red near the stool in the toilet and
had some blood draining in the stool as well. No prior known history of GI bleeding. She complains of abdominal pain in the middle of her belly. She did have some loose stools yesterday.
Patient takes ibuprofen as needed no recent use of ibuprofen.
# Acute metabolic encephalopathy secondary to UTI
# ESBL E. coli UTI
# History of prior UTI
- Urinalysis showed 16-20 WBC, +2 leukocyte esterase
- Consulted ID on 06/01/25 given ESBL E. coli growth in urine culture -- initially switched Ceftriaxone to Ertapenem continue antibiotics as per ID -- changed to Bactrim, appreciate ID
# Acute kidney injury prerenal - RESOLVED
- Creatinine 1.3
- IV fluids were given
# Rectal bleeding episode unclear etiology could be diverticular versus angioectasia versus colitis
- Rectal exam showed brown stool, heme positive
- No active bleeding currently, no diarrhea noted so far
- Hemoglobin stable
- Consider CT scan only if continued bleeding or diarrhea
- Consult GI only if continued bleeding or hemoglobin drops
Down syndrome
Dementia
Mild mitral regurgitation
Right hearing loss
Osteopenia
Allergic rhinitis
Hyperlipidemia
- Continue statin
Full code
DVT prophylaxis�SCDs
Diet (as per Speech therapist Meg Lewis): Minced and moist solids + thin liquids
Anticipated Discharge: Within 24 hours
Subjective/Interval History
-
Date of Service: June 01, 2025
Patient was seen and examined. She denied any new symptoms or complaints.
Objective Data
-
Labs:
Laboratory Results
06/01/25
09:15
WBC 7.7
Hgb 14.8
Hct 43.5
Plt Count 300
Sodium 141
Potassium 4.2
Chloride 107
Carbon Dioxide 26
BUN 13
Creatinine 0.9
Glucose 117 H
Calcium 8.7
Vital Signs:
Vital Signs
Temp Pulse Resp BP Pulse Ox
97.9 F 85 16 118/70 99
06/01/25 16:00 06/01/25 16:00 06/01/25 16:00 06/01/25 16:00 06/01/25 16:00
I&O
05/31/25 06/01/25 06/02/25
06:59 06:59 06:59
Intake Total 660 / 660 480 / 480
Balance 660 / 660 480 / 480
[2025-06-01] MEDS: LIPITOR 20 MG PO (22:12)
[2025-06-01] MEDS: BACTRIM DS 800 MG/160 MG 1 TABLET PO (22:12)
[2025-06-01 23:00] VITALS: BP 129/70
[2025-06-02 06:48] LABS: Hematocrit 42.1 % (37.0-47.0); Hemoglobin 14.0 g/dL (12.0-16.0); Mean Corp Hgb Conc. 33.3 g/dL (33.0-37.0); Mean Corpuscular Volume 90.0 fL (81.0-99.0); Platelet Count 291 10^3/uL (130-400); Red Cell Dist. Width 15.0 % (11.5-14.5)
[2025-06-02 07:03] LABS: Blood Urea Nitrogen 14 mg/dl (7-17); Calcium 8.9 mg/dl (8.4-10.2); Carbon Dioxide 25 mmol/L (22-30); Chloride 108 mmol/L (98-107); Estimated Creatinine Clearance 57 ml/min; Glucose 105 mg/dl (70-99); Potassium 4.2 mmol/L (3.5-5.1); Sodium 140 mmol/L (135-145); eGFR > 60.00
--- NOTE | 2025-06-02 07:40 | W.PN.HOSP.TC ---
Today's Communication/Plan
-
Discharge today
Assessment / Plan
Assessment / Plan
Physical Exam
General: Well Developed, Well Nourished and No Apparent Distress
HEENT: Normocephalic, Moist mucous membranes
Respiratory: Clear to Auscultation Bilaterally
Cardiac: S1/S2 and Regular Rhythm
GI: Soft, Non Tender, Non Distended and Normal Bowel Sounds
Musculoskeletal: No Cyanosis and No Edema
Skin: Warm. Dry.
Neuro: Nonfocal/grossly intact
Assessment/Plan
64-year-old female past medical history of Down syndrome, dementia, mild mitral regurgitation, right hearing loss, osteopenia, allergic rhinitis, hyperlipidemia, presenting from residential facility by caregiver with more confusion over the past
several days. She was noticed to have urinated more frequently recently. Today caregiver noted some blood in the patient's stool. Stools were not black but dark in color and had a clot of blood which was dark red near the stool in the toilet and
had some blood draining in the stool as well. No prior known history of GI bleeding. She complains of abdominal pain in the middle of her belly. She did have some loose stools recently.
Patient takes ibuprofen as needed no recent use of ibuprofen.
# Acute metabolic encephalopathy secondary to UTI
# ESBL E. coli UTI
# Levofloxacin allergy - rash
# History of prior UTI
- Urinalysis showed 16-20 WBC, +2 leukocyte esterase
- Consulted ID on 06/01/25 given ESBL E. coli growth in urine culture -- initially switched Ceftriaxone to Ertapenem continue antibiotics as per ID -- changed to Bactrim, appreciate ID - continue bactrim 1 DS tab BID x6 more days
# Acute kidney injury prerenal - RESOLVED
- Creatinine 1.3
- IV fluids were given
# Rectal bleeding episode unclear etiology could be hemorrhoids? versus diverticular versus angioectasia versus colitis versus other
- Rectal exam showed brown stool, heme positive
- No active bleeding since admission, no diarrhea noted so far
- Hemoglobin stable/normal
- Consider CT scan only if continued bleeding or diarrhea
- Outpatient follow-up for colonoscopy and endoscopy
Down syndrome
Dementia
Mild mitral regurgitation
Right hearing loss
Osteopenia
Allergic rhinitis
Hyperlipidemia
- Continue statin
Full code
DVT prophylaxis�SCDs
Diet (as per Speech therapist Meg Lewis): IDDSI Level 5 (Minced and moist solids) + thin liquids; aspiration precautions; partial assistance and supervision with PO intake
More than 30 minutes spent in discharge including
Final examination of the patient
Summarizing hospital stay
Instructions for continuing care to all relevant caregivers
Preparation of discharge records, prescriptions, and referral forms
Total time spent (in minutes): 38
Anticipated Discharge: Today
Subjective/Interval History
-
Date of Service: June 02, 2025
Patient was seen and examined. No new symptoms or complaints.
Objective Data
-
Labs:
Laboratory Results
06/02/25
06:03
WBC 7.6
Hgb 14.0
Hct 42.1
Plt Count 291
Sodium 140
Potassium 4.2
Chloride 108 H
Carbon Dioxide 25
BUN 14
Creatinine 0.9
Glucose 105 H
Calcium 8.9
Vital Signs:
Vital Signs
Temp Pulse Resp BP Pulse Ox
97.9 F 69 15 129/70 95
06/01/25 23:00 06/01/25 23:00 06/01/25 23:00 06/01/25 23:00 06/01/25 23:00
I&O
06/01/25 06/02/25 06/03/25
06:59 06:59 06:59
Intake Total 480 / 480 700 / 700
Balance 480 / 480 700 / 700
[2025-06-02 07:46] VITALS: BP 105/65
[2025-06-02] MEDS: THERAGRAN 1 TABLET PO (08:42)
[2025-06-02] MEDS: PROTONIX 40 MG PO (08:42)
[2025-06-02] MEDS: REFRESH EYE DROPS (PF) 1 DROPS BOTH EYES ×2 (08:43→14:16)
[2025-06-02] MEDS: BACTRIM DS 800 MG/160 MG 1 TABLET PO (08:43)
[2025-06-02] MEDS: OCEAN, SALINE MIST 2 SPRAYS NASAL (08:43)
--- NOTE | 2025-06-02 11:03 | W.PN.ID1 ---
Date of Service
Date of Service: June 02, 2025
Today's Communication
- continue bactrim 1 DS tab BID x6 more days
Assessment / Plan
ESBL E coli UTI
Levofloxacin allergy - rash
- continue bactrim 1 DS tab BID x6 more days
- stable for dc from ID perspective
Chief Complaint
-: UTI
Subjective / Review of Systems
afebrile
bp stable
no complaints
Vital Signs / Physical Exam
Vital Signs
Vital Signs
Temp Pulse Resp BP Pulse Ox
97.8 F 67 18 105/65 97
06/02/25 07:46 06/02/25 07:46 06/02/25 07:46 06/02/25 07:46 06/02/25 07:46
Physical Exam
Constitutional: No Acute Distress
Cardiovascular: Regular Rate and S1/S2; Negative Murmur or Rub
Pulmonary: Clear and Symmetric; Negative Wheezes or Rales
Gastrointestinal: Soft, Non Tender, Non Distended and Normal Bowel Sounds
Skin: Warm and Dry; Negative Rash or Jaundice
Objective Data
Lab Data
Lab Results
06/02/25 06:03
06/02/25 06:03
Estimated Creat Clear 57 ml/min 06/02/25 06:03
Total Bilirubin 0.5 mg/dl (0.2-1.3) 05/30/25 05:38
AST 27 U/L (14-36) 05/30/25 05:38
ALT 22 U/L (0-35) 05/30/25 05:38
Alkaline Phosphatase 96 U/L (38-126) 05/30/25 05:38
Most recent labs reviewed.
Micro Results:
05/29/25 11:48 Urine Culture - Final
Urine Escherichia coli - ESBL
--- NOTE | 2025-06-02 13:06 | CM ---
Patient is cleared for discharge to [facility] today.
Ambulance transport requested for discharge.
Plan: Discharge to [facility] today via ambulance.
Address:
[address] [place] [address]
[place] [id number]
[facility] Report: [phone]
[facility]
[2025-06-02 15:23] VITALS: BP 98/59
--- NOTE | 2025-06-02 17:14 | PTCARENOTE ---
patient gets scared very easily and refused to try and transfer oob. tolerating diet, turns with assist x2, vss, for discharge today back to facility
== END 2025-06-02 17:30 | disposition home or self-care (01) | DRG 682 ==
LOC: 3 WEST ACU 15:01
PROVIDERS: Nurse Practitioner; ADMITTING PHYSICIAN Hospitalist; ATTENDING PHYSICIAN Hospitalist; CONSULT PHYSICIAN Student in an Organized Health Care Education/Training Program; EMERGENCY PHYSICIAN Emergency Medicine; FAMILY PHYSICIAN Nurse Practitioner Adult Health
DX: N17.9 Acute kidney failure, unspecified (principal); G93.41 Metabolic encephalopathy; N39.0 Urinary tract infection, site not specified; K62.5 Hemorrhage of anus and rectum; Q90.9 Down syndrome, unspecified; E78.5 Hyperlipidemia, unspecified; M85.80 Other specified disorders of bone density and structure, unspecified site; Z87.440 Personal history of urinary (tract) infections
CPT/HCPCS: 80048; 80053; 81003; 81015; 85025; 85027; 86850; 86900; 86901; 87077; 87086; 87186; 92526; 92610; 96360; 99285; J1335